=== PATIENT | female | born 1950 | race Two or more races ===

== ENCOUNTER → 2024-06-10 09:00 | Outpatient (REF) | payer OTHER, SELFPAY ==
[2024-06-11 11:18] LABS: Hematocrit 40.9 % (37.0-47.0); Hemoglobin 13.4 g/dL (12.0-16.0); Mean Corp Hgb Conc. 32.8 g/dL (33.0-37.0); Mean Corpuscular Hgb 29.5 pg (27.0-31.0); Mean Corpuscular Volume 89.9 fL (81.0-99.0); Mean Platelet Volume 9.7 fL (7.4-10.4); Platelet Count 240 10^3/uL (130-400); Red Blood Cell Count 4.55 10^6/uL (4.20-5.40); Red Cell Dist. Width 13.1 % (11.5-14.5); White Blood Cell Count 7.3 10^3/uL (4.8-10.8)
[2024-06-11 11:51] LABS: ALT (SGPT) 15 U/L (0-35); AST (SGOT) 21 U/L (14-36); Alkaline Phosphatase 64 U/L (38-126); Blood Urea Nitrogen 22 mg/dl (7-17); Calcium 9.8 mg/dl (8.4-10.2); Carbon Dioxide 26 mmol/L (22-30); Chloride 107 mmol/L (98-107); Glucose 93 mg/dl (70-99); Potassium 3.9 mmol/L (3.5-5.1); Sodium 141 mmol/L (135-145); Total Bilirubin 0.5 mg/dl (0.2-1.3); Total Protein 6.5 g/dl (6.3-8.2); eGFR > 60.00
[2024-06-11 13:27] LABS: Glycohemoglobin (HgbA1c) 5.8 % (4.0-5.6)
[2024-06-11 14:18] VITALS: BMI 28.1
--- NOTE | 2024-06-16 12:18 | VNURNOTE ---
Patient is scheduled for an elective L HAYDE on 06/30/24- she is a same day patient with Dr Vogt. Spoke with patient prior to surgery. Introduced role of [facility] Liaison. Patient reports that she lives with spouse in a MULTI story home.
There is 1 step to enter and a flight of steps to the second floor.
She has a raised toilet seat, cane and rolling walker.
PCP is Dot Flynn.
Discussed [facility] joint protocol and post surgical plans.
Reviewed that she will have VN services initially and will then start outpatient PT.
Patient selects [facility] for home care needs and will go to [facility] for outpatient PT. Scheduled for 07/03.
Patient is in agreement with plan and states that her spouse will be home with her. Advised to bring RW with her day of surgery. [facility] referral placed in [facility].
Plan: [facility] per [facility] joint protocol 06/30 then outpt PT on 07/03
== END ==
LOC: SDSPAT 09:00
PROVIDERS: ATTENDING PHYSICIAN Specialist; FAMILY PHYSICIAN Nurse Practitioner Family; OTHER PHYSICIAN Physician Assistant
DX: M16.12 Unilateral primary osteoarthritis, left hip (principal)
CPT/HCPCS: 36415; 80053; 83036; 85027; 87070; 93005

== ENCOUNTER 2024-06-30 06:23 | Day surgery (SDC) | payer OTHER, SELFPAY ==
--- NOTE | 2024-06-25 10:21 | VNURNOTE ---
[facility] liaison called patient previously- Documented on previous chart which has since been closed.
Per [facility] Pre-Procedure Anesthesia Note, patient scheduled for L HAYDE but patient requesting R HAYDE.
SDS R HAYDE on 06/30. Patient will receive [facility] and PT upon DC and will start outpt PT on 07/03 at [facility]. Referral updated in [facility].
[2024-06-30] VITALS (7 sets, daily range): BP systolic 108–146; BP diastolic 53–88; PULSE 100; O2SAT 98; BMI 28.4
[2024-06-30] MEDS: TYLENOL 650 MG PO (07:50)
[2024-06-30] MEDS: MOBIC 15 MG PO (07:50)
[2024-06-30] MEDS: BACTROBAN NASAL 1 GRAM NASAL (07:51)
[2024-06-30] MEDS: NORMOSOL-R/PLASMALYTE-A 1000 IV (07:51)
[2024-06-30] MEDS: ANCEF 5 IV (12:51)
== END 2024-06-30 13:20 | disposition home health service (06) ==
LOC: SDS 06:23
PROVIDERS: ATTENDING PHYSICIAN Specialist; FAMILY PHYSICIAN Nurse Practitioner Family
DX: M16.11 Unilateral primary osteoarthritis, right hip (principal); M81.0 Age-related osteoporosis without current pathological fracture; B19.10 Unspecified viral hepatitis B without hepatic coma; M48.061 Spinal stenosis, lumbar region without neurogenic claudication; R73.03 Prediabetes
CPT/HCPCS: 27130; 73502; 97162; 97530; C1713; C1776

== ENCOUNTER 2024-09-15 07:32 | Inpatient (IN) | payer OTHER, SELFPAY ==
[2024-09-01 11:35] LABS: Hematocrit 40.3 % (37.0-47.0); Hemoglobin 13.6 g/dL (12.0-16.0); Mean Corp Hgb Conc. 33.7 g/dL (33.0-37.0); Mean Corpuscular Hgb 30.4 pg (27.0-31.0); Mean Platelet Volume 10.6 fL (7.4-10.4); Platelet Count 214 10^3/uL (130-400); Red Blood Cell Count 4.48 10^6/uL (4.20-5.40); Red Cell Dist. Width 11.9 % (11.5-14.5); White Blood Cell Count 5.1 10^3/uL (4.8-10.8)
[2024-09-01 12:03] LABS: ALT (SGPT) 17 U/L (0-35); AST (SGOT) 24 U/L (14-36); Albumin 4.4 g/dl (3.5-5.0); Alkaline Phosphatase 55 U/L (38-126); Blood Urea Nitrogen 22 mg/dl (7-17); Calcium 9.6 mg/dl (8.4-10.2); Carbon Dioxide 27 mmol/L (22-30); Chloride 110 mmol/L (98-107); Glucose 91 mg/dl (70-99); Potassium 4.7 mmol/L (3.5-5.1); Sodium 143 mmol/L (135-145); Total Bilirubin 0.5 mg/dl (0.2-1.3); Total Protein 6.7 g/dl (6.3-8.2); eGFR > 60.00
[2024-09-01 13:43] VITALS: BMI 28.6
[2024-09-01 14:57] VITALS: BMI 28.6
[2024-09-02 03:09] LABS: Glycohemoglobin (HgbA1c) 5.1 % (4.0-5.6)
[2024-09-15] VITALS (14 sets, daily range): BP systolic 102–150; BP diastolic 37–83; PULSE 72–97; O2SAT 100
[2024-09-15] MEDS: MOBIC 15 MG PO (07:58)
[2024-09-15] MEDS: TYLENOL 650 MG PO ×4 (07:59→20:25)
[2024-09-15] MEDS: NORMOSOL-R/PLASMALYTE-A 1000 IV ×2 (08:07→13:24)
[2024-09-15] MEDS: ULTRAM 50 MG PO (11:53)
--- NOTE | 2024-09-15 12:16 | W.PN.UPDATE ---
Update Note
Progress Note Update
L hip OA s/p L HAYDE w/ Dr Vogt 09/15/24
- s/p R HAYDE, 06/2024, by Dr Vogt
DVT prophylaxis - ASA, b/l venous foot pumps
HTN - + parameters - monitor BP
Post-op dizziness after R HAYDE - orthostasis vs opioid related - monitor orthostatic VS q8h
- IVF running. Advise oral hydration
- Minimize opioids as tolerated
- Midodrine if indicated
Chronic constipation - add daily Miralax to bowel regimen of Colace and Senna
- Adequate hydration, early mobility, and minimization of opioids advised
Balance and gait disturbance - on fall precautions
HLD
Venous insufficiency with varicosities
Pancreatic lesion
Remote hepatitis B
Migraines
Degenerative disc disease with spinal stenosis
Osteoporosis
ADHD
--- NOTE | 2024-09-15 12:40 | PTCARENOTE ---
Pt arrived to 2S in bed. Full assessment completed. RLE with decreased movement, neurovascular assessment otherwise WDL. L hip primaseal with a scant amount of drainage noted. Nasal cannula maintained. IVF initiated. Pt instructed to ring for
assistance getting OOB, verbalized understanding. Bed locked and in the lowest position, safety maintained. Oriented to room and call vann, spouse at bedside.
[2024-09-15] MEDS: LIPITOR 20 MG PO (13:23)
[2024-09-15] MEDS: COREG 6.25 MG PO ×2 (13:23→20:25)
[2024-09-15] MEDS: ProAmatine PO ×2 (13:23→17:05)
[2024-09-15] MEDS: ANCEF 5 IV (15:57)
[2024-09-15] MEDS: ROXICODONE 10 MG PO (17:06)
[2024-09-15] MEDS: ASPIRIN 325 MG PO (17:06)
[2024-09-15] MEDS: COLACE 100 MG PO (20:25)
[2024-09-15] MEDS: SENOKOT 17.2 MG PO (20:25)
[2024-09-15] MEDS: BACTROBAN 2% OINTMENT 1 APPLIC NASAL (20:26)
[2024-09-15] MEDS: DECADRON 4 MG PO (20:26)
[2024-09-15] MEDS: NEURONTIN 300 MG PO (21:40)
[2024-09-15] MEDS: PEPCID 20 MG PO (21:40)
[2024-09-16] MEDS: ANCEF 5 IV (00:02)
[2024-09-16] MEDS: ROXICODONE 10 MG PO ×2 (00:05→07:57)
[2024-09-16] MEDS: TYLENOL 650 MG PO ×3 (00:05→12:09)
[2024-09-16 03:05] VITALS: BP 100/57
[2024-09-16] MEDS: TYLENOL PO (03:09)
[2024-09-16 07:40] VITALS: BP 115/57
[2024-09-16] MEDS: ProAmatine 5 MG PO ×2 (07:52→12:09)
[2024-09-16] MEDS: ASPIRIN 325 MG PO (07:52)
[2024-09-16] MEDS: CELEBREX 200 MG PO (07:52)
[2024-09-16] MEDS: COLACE 100 MG PO (07:53)
[2024-09-16] MEDS: BACTROBAN 2% OINTMENT 1 APPLIC NASAL (07:53)
[2024-09-16] MEDS: DECADRON 4 MG PO (07:53)
[2024-09-16] MEDS: LIPITOR 20 MG PO (07:53)
[2024-09-16] MEDS: COREG 6.25 MG PO (07:53)
[2024-09-16] MEDS: MIRALAX 17 GRAMS PO (07:53)
[2024-09-16] MEDS: SENOKOT 17.2 MG PO (07:53)
[2024-09-16 10:01] VITALS: BP 109/46; BP 113/57; BP 99/55; PULSE 74; PULSE 75; PULSE 84
--- NOTE | 2024-09-16 10:06 | W.PN.ORTHO ---
Today's Communication / Plan
-
Await PT and OT recs.
D/c later today if remaining clinically stable.
Assessment
.
Distal Motor Intact: Yes
Dressing:
Trace old incisional bleeding. Dressing otherwise C/D/I.
Assessment:
L hip OA s/p L HAYDE w/ Dr Vogt 09/15/24
- s/p R HAYDE, 06/2024, by Dr Vogt
DVT prophylaxis - ASA, b/l venous foot pumps
HTN - + parameters - BPs stable overall
Post-op dizziness after R HAYDE - orthostasis vs opioid related - orthostatic VS q8h stable
- s/p IVF. Advised oral hydration
- Minimize opioids as tolerated -> pt would prefer Oxycodone vs Tramadol upon d/c. Is notably tolerating this opioid well
- Midodrine if indicated
Chronic constipation - added daily Miralax to bowel regimen of Colace and Senna
- Adequate hydration, early mobility, and minimization of opioids advised
Balance and gait disturbance - on fall precautions
HLD
Venous insufficiency with varicosities
Pancreatic lesion
Remote hepatitis B
Migraines
Degenerative disc disease with spinal stenosis
Osteoporosis
ADHD
Plan
.
Surgery / Date: L HAYDE w/ Dr Vogt 09/15/24
DVT Prophylaxis: Aspirin
Activity:
Out of bed.
PT/OT
Discharge Plan: Home w/ Outpatient PT
Subjective
.
.:
Patient resting comfortably in bed.
L hip pain tolerable w/ minimal pain meds.
Denies any new significant complaints.
Orthostatic VS stable.
Eager for potential d/c today.
Vital Signs and Labs
.
Vital Signs and Labs:
Lab Results
09/01/24 10:15
09/01/24 10:15
Temp Pulse Resp BP Pulse Ox
98.4 F 83 16 115/57 94
09/16/24 07:40 09/16/24 07:52 09/16/24 07:40 09/16/24 07:52 09/16/24 07:40
Non-invasive Hgb result: 12.0
Physical Exam
-
HEENT: No pallor, cyanosis, or jaundice. Throat clear.
NECK: Supple. No JVD.
RESPIRATORY: Lungs clear to auscultation.
CVS: S1, S2 normal. RRR.�
ABDOMEN: Soft, non-tender. No distension.
EXTREMITIES: Strength equal, no calf pain with palpation/dorsiflexion. Calves soft.
PERFORMANCE TEST ARCHITECT: AOx3. No focal deficits. blue line trimmer grossly intact
--- NOTE | 2024-09-16 10:17 | W.DS.TRANS ---
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
-
Discharge Instructions:
Sleep Apnea Risk Low
Discharge Diagnosis/Procedures L hip OA s/p L HAYDE w/ Dr Vogt 09/15/24
Diet Regular
Activity With Walker,As tolerated
Additional Activity Adequate hydration, minimize Oxycodone, and wear
TEDs stockings to prevent low blood pressure/
dizziness
Driving Restrictions Not until seen by your Dr
Bathing Restrictions OK to Shower
Other Services PT
Wound Care Dressing to be removed 1 week post-surgery.
Ophelia to be removed at 2 week follow-up with
surgeon's office.
Instructions:
Stand-Alone Forms: Total Hip/Knee Replacement D/C
Changes to Home Medications: Yes
Discharge Medications:
DC Medications w/original date entered in [facility]
atorvastatin 20 mg tablet 20 mg PO DAILY High Cholesterol 06/10/24
[id number] 8 mg-folic 400 mcg-K 50 mcg-lutein 300 mcg tablet (Centrum Silver Women) 1 tab PO DAILY Supplement 06/10/24
celecoxib 200 mg capsule 200 mg PO DAILY Anti-inflammatory #14 caps 09/01/24
dexamethasone 4 mg tablet 4 mg PO BID inflammation #6 tabs 09/01/24
famotidine 20 mg tablet 20 mg PO HS GI prophylaxis #30 tabs 09/01/24
gabapentin 300 mg capsule 300 mg PO HS sleep/pain #10 caps 09/01/24
mupirocin 2 % topical ointment 1 applic topical BID infection prevention #1 tube 09/01/24
acetaminophen 325 mg tablet (Tylenol) 650 mg (2 x 325 mg) PO Q4HWA #1 tab 09/16/24
alendronate 70 mg tablet 70 mg PO TH bone health #0 tabs 09/16/24
aspirin 325 mg tablet 325 mg PO DAILY #30 tabs 09/16/24
carvedilol 6.25 mg tablet 6.25 mg PO Q12H Blood Pressure #1 tab 09/16/24
docusate sodium 100 mg capsule 100 mg PO BID #30 caps 09/16/24
ondansetron HCl 4 mg tablet 4 mg PO Q6H PRN nausea and vomiting #30 tabs 09/16/24
oxycodone 5 mg tablet 5 - 10 mg (1 - 2 x 5 mg) PO Q6H PRN moderate-severe pain #30 tabs 09/16/24
polyethylene glycol 3350 17 gram oral powder packet 17 g PO DAILY #14 ea 09/16/24
sennosides 8.6 mg tablet (Cony-christina) 17.2 mg (2 x 8.6 mg) PO BID #30 tabs 09/16/24
Home Medication Changes
celecoxib 200 mg capsule 200 mg PO DAILY Anti-inflammatory #14 caps 09/01/24
dexamethasone 4 mg tablet 4 mg PO BID inflammation #6 tabs 09/01/24
famotidine 20 mg tablet 20 mg PO HS GI prophylaxis #30 tabs 09/01/24
gabapentin 300 mg capsule 300 mg PO HS sleep/pain #10 caps 09/01/24
mupirocin 2 % topical ointment 1 applic topical BID infection prevention #1 tube 09/01/24
acetaminophen 325 mg tablet (Tylenol) 650 mg (2 x 325 mg) PO Q4HWA #1 tab 09/16/24
aspirin 325 mg tablet 325 mg PO DAILY #30 tabs 09/16/24
docusate sodium 100 mg capsule 100 mg PO BID #30 caps 09/16/24
ondansetron HCl 4 mg tablet 4 mg PO Q6H PRN nausea and vomiting #30 tabs 09/16/24
oxycodone 5 mg tablet 5 - 10 mg (1 - 2 x 5 mg) PO Q6H PRN moderate-severe pain #30 tabs 09/16/24
polyethylene glycol 3350 17 gram oral powder packet 17 g PO DAILY #14 ea 09/16/24
sennosides 8.6 mg tablet (Cony-christina) 17.2 mg (2 x 8.6 mg) PO BID #30 tabs 09/16/24
Pending Results: No
[2024-09-16 10:44] VITALS: BP 105/58; PULSE 80; O2SAT 97
[2024-09-16 11:34] VITALS: BP 99/76; PULSE 78; O2SAT 97
[2024-09-16 11:40] VITALS: BP 99/78
== END 2024-09-16 12:52 | disposition home or self-care (01) | DRG 470 ==
LOC: 2 SOUTH 07:32
PROVIDERS: ADMITTING PHYSICIAN Specialist; FAMILY PHYSICIAN Nurse Practitioner Family
PROC: 0SRB0JA Replacement of Left Hip Joint with Synthetic Substitute, Uncemented, Open Approach (ICD-10-PCS; 2024-09-15)
DX: M16.12 Unilateral primary osteoarthritis, left hip (principal); E66.9 Obesity, unspecified; I10 Essential (primary) hypertension; E78.5 Hyperlipidemia, unspecified; I87.2 Venous insufficiency (chronic) (peripheral); K86.9 Disease of pancreas, unspecified; R26.9 Unspecified abnormalities of gait and mobility; K59.09 Other constipation; G43.909 Migraine, unspecified, not intractable, without status migrainosus; M81.0 Age-related osteoporosis without current pathological fracture; F90.9 Attention-deficit hyperactivity disorder, unspecified type; R42 Dizziness and giddiness; Z96.641 Presence of right artificial hip joint; Z86.19 Personal history of other infectious and parasitic diseases; Z68.29 Body mass index [BMI] 29.0-29.9, adult; Z98.1 Arthrodesis status; Z79.82 Long term (current) use of aspirin; Z79.1 Long term (current) use of non-steroidal anti-inflammatories (NSAID); Z88.2 Allergy status to sulfonamides; Z91.048 Other nonmedicinal substance allergy status
CPT/HCPCS: 36415; 73502; 80053; 83036; 85027; 87070; 97110; 97116; 97162; 97167; 97535